=== PATIENT | male | born 1995 | race Caucasian/White ===

== ENCOUNTER 2016-07-02 04:45 | Emergency (ER) | payer MEDICAID ==
[~2016-07-02] VITALS: Ht 162.6 cm; Wt 66.0 kg
[2016-07-02 05:06] VITALS: Ht 162.6 cm; Wt 66.0 kg
[2016-07-02] MEDS ORDERED: morphine 4 MG/ML VIAL IV STA (07:15)
[2016-07-02] MEDS ORDERED: KETOROLAC 15 MG INJ IV STA (07:15)
[2016-07-02] MEDS ORDERED: ONDANSETRON 4 MG INJ IV STA (07:15)
[2016-07-02] MEDS ORDERED: SOD CHLORIDE 0.9% 1,000 ML IV STA (07:15)
[2016-07-02] MEDS ORDERED: HYDROmorphONE 1 MG/ML SYG IV STA (07:18)
[2016-07-02 07:59] LABS: ADD SCAN DIFF NO
[2016-07-02 08:12] LABS: BASOPHILS % 0.2 % (0.0-2.0); EOSINOPHILS % 0.1 % (0.0-7.0); HEMATOCRIT 42.9 % (42.0-52.0); HEMOGLOBIN 14.2 g/dl (14.0-18.0); LYMPHOCYTES # 1.1 10^3/ul (0.8-2.9); LYMPHOCYTES % 8.2 % (15.0-51.0); MEAN CORPUSCULAR HEMOGLOBIN 30.1 pg (29.0-33.0); MEAN CORPUSCULAR HGB CONC 33.1 g/dl (32.0-37.0); MEAN CORPUSCULAR VOLUME 91.1 fl (82.0-101.0); MEAN PLATELET VOLUME 9.8 fl (7.4-10.4); MONOCYTE # 0.7 10^3/ul (0.3-0.9); MONOCYTES % 5.4 % (0.0-11.0); NEUTROPHIL # 11.5 10^3/ul (1.6-7.5); NEUTROPHILS % 85.7 % (39.0-77.0); PLATELET COUNT 234 10^3/UL (140-415); RED BLOOD COUNT 4.71 10^6/ul (4.70-6.10); RED CELL DISTRIBUTION WIDTH 13.6 % (11.5-14.5); WHITE BLOOD COUNT 13.4 10^3/ul (4.8-10.8)
[2016-07-02 08:13] LABS: ADD UMIC NO; URINE BILIRUBIN (Dip) NEGATIVE (NEGATIVE); URINE BLOOD (Dip) NEGATIVE (NEGATIVE); URINE COLOR LT. YELLOW (YELLOW); URINE GLUCOSE (Dip) NEGATIVE (NEGATIVE); URINE KETONES (Dip) NEGATIVE (NEGATIVE); URINE LEUKOCYTE ESTERASE (Dip) NEGATIVE (NEGATIVE); URINE NITRITE (Dip) NEGATIVE (NEGATIVE); URINE TOTAL PROTEIN (Dip) NEGATIVE (NEGATIVE); URINE UROBILINOGEN (Dip) 0.2 E.U./dL (0.1-1.0)
[2016-07-02 08:18] LABS: POTASSIUM 3.7 mmol/L (3.5-5.1)
[2016-07-02 08:19] LABS: CREATININE 0.83 mg/dl (0.61-1.24)
[2016-07-02 08:20] LABS: ALBUMIN/GLOBULIN RATIO 1.21; BILIRUBIN,INDIRECT 0.1 mg/dl (0-1.1); BILIRUBIN,TOTAL 0.1 mg/dl (0.2-1.3); CALCIUM 8.5 mg/dl (8.4-10.2); TOTAL PROTEIN 7.3 g/dl (6.1-8.1)
--- NOTE | 2016-07-02 08:50 | RADRPT ---
PROCEDURE: CT Abdomen and pelvis without contrast. CLINICAL INDICATION: Abdominal pain TECHNIQUE: CT scan of the abdomen and pelvis with contrast was performed on a multidetector high-r esolution CT scan. . Coronal and sagittal reformatted images were obtained from the axial source i mages. Standard CT scan of the abdomen pelvis without contrast protocols were performed. The total exam CTDI equals 8.19 mGy and the total exam DLP equals 462.37 mGy-cm. One or more of the following dose reduction techniques were used: - Automated exposure control. - Adjustment of the mA and/or kV according to patient size. Use of iterative reconstruction technique. COMPARISON: None FINDINGS: The appendix is dilated with a maximal diameter of 1.0 cm with a thick wall and to elongated appendi coliths. Although there is no adjacent induration or fluid rule out early acute appendicitis. Ther e is no evidence of intra-abdominal free air fluid abscesses or lymphadenopathy. The stomach, small bowel and large bowel are unremarkable. The liver spleen pancreas adrenal glands and kidneys are normal size configuration without focal les ions. Negative for hydronephrosis bilaterally. The urinary bladder is unremarkable. The abdominal aorta is unremarkable. The lung bases are clear. The osseous structures are unremark able. IMPRESSION: 1. Dilated or thick-walled appendix with appendicoliths. Rule out early acute appendicitis. 2. No intra-abdominal free air fluid abscesses or lymphadenopathy. 3. No evidence of calcified urinary calculi or obstructive uropathy. 4. No evidence of bowel obstruction. Addendum: Navarro Wheatley was telephoned this results on 07/02/2016 0835 hours. RPTAT:AAJJ Physician Kaveh Date Time Electronically viewed and signed by Physician Kaveh on 07/02/2016 08:50 BM/
--- NOTE | 2016-07-02 08:53 | ERA ---
ER Documentation Chief Complaint Date/Time DATE: 07/02/16 TIME: 08:47 Chief Complaint AP since 12 MN HPI This is a 20-year-old male presenting to the emergency room complaining of 10 out of 10 severe abdominal pain since midnight. Patient locates the pain in the periumbilical region. He denies any fever, nausea, vomiting, diarrhea. Last meal was 4 PM yesterday. He admits to having decreased appetite. ROS All systems reviewed and are negative except as per history of present illness. Medications Home Meds Active Scripts Hydrocodone/Acetaminophen ([place] 5-325 Tablet) 1 Each Tablet, 1 TAB PO Q6H Y for PAIN, #20 TAB Prov:KAELYN ORR PA-C 07/02/16 Metronidazole* (Flagyl*) 500 Mg Tablet, 500 MG PO TID for 7 Days, TAB Prov:KAELYN ORR PA-C 07/02/16 Ciprofloxacin Hcl* (Ciprofloxacin Hcl*) 500 Mg Tablet, 500 MG PO BID for 7 Days , TAB Prov:KAELYN ORR PA-C 07/02/16 Allergies Allergies: Coded Allergies: No Known Allergy (Unverified , 07/02/16) PMhx/Soc Medical and Surgical Hx: pt denies Medical Hx, pt denies Surgical Hx Hx Alcohol Use: No Hx Substance Use: No Hx Tobacco Use: No Physical Exam Vitals Vital Signs Date Time Temp Pulse Resp B/P Pulse Ox O2 Delivery O2 Flow Rate FiO2 07/02/16 09:01 98.6 67 18 118/61 Room Air 07/02/16 05:06 98.8 62 18 114/56 100 Physical Exam GENERAL: well-developed/well-nourished, in no apparent distress, non-toxic appearing HENT: NC/AT, moist mucous membranes EYES: Conjunctiva normal NECK: Supple, no lymphadenopathy PULM: CTA bilaterally, no rales, rhonchi, or wheezing heard CV: Normal S1S2, RRR, good capillary refill GI: Soft, non-distended, tender to palpation in periumbilical and right lower quadrant Normal bowel sounds, no masses or organomegaly felt on exam No gross peritonitis, no bruits Negative Rovsing, negative Ho, + McBurney's point, Negative CVAT BACK: No masses EXT: No clubbing, cyanosis, or edema NEURO: Alert and Orientated SKIN: Intact, normal turgor PSYCH: Normal mood and mentation Result Diagram: 07/02/16 0748 07/02/16 0748 Results 24 hrs Laboratory Tests Test 07/02/16 07:48 Alanine Aminotransferase (ALT/SGPT) 34IU/L Albumin 4.0g/dl Albumin/Globulin Ratio 1.21 Alkaline Phosphatase 99IU/L Anion Gap 15 Aspartate Amino Transf (AST/SGOT) 35IU/L Basophils # 0.010^3/ul Basophils % 0.2% Blood Urea Nitrogen 11mg/dl Calcium Level 8.5mg/dl Carbon Dioxide Level 27mmol/L Chloride Level 101mmol/L Creatinine 0.83mg/dl Direct Bilirubin 0.00mg/dl Eosinophils # 0.010^3/ul Eosinophils % 0.1% Globulin 3.30g/dl Glucose Level 128mg/dl Hematocrit 42.9% Hemoglobin 14.2g/dl Indirect Bilirubin 0.1mg/dl Lipase 52U/L Lymphocytes # 1.110^3/ul Lymphocytes % 8.2% Mean Corpuscular Hemoglobin 30.1pg Mean Corpuscular Hemoglobin Concent 33.1g/dl Mean Corpuscular Volume 91.1fl Mean Platelet Volume 9.8fl Monocytes # 0.710^3/ul Monocytes % 5.4% Neutrophils # 11.510^3/ul Neutrophils % 85.7% Nucleated Red Blood Cells # 0.010^3/ul Nucleated Red Blood Cells % 0.0/100WBC Platelet Count 25534^3/UL Potassium Level 3.7mmol/L Red Blood Count 4.7110^6/ul Red Cell Distribution Width 13.6% Sodium Level 139mmol/L Total Bilirubin 0.1mg/dl Total Protein 7.3g/dl Urine Bilirubin NEGATIVE Urine Clarity CLEAR Urine Color LT. YELLOW Urine Glucose NEGATIVE% Urine Hemoglobin NEGATIVE Urine Ketones NEGATIVE Urine Leukocyte Esterase NEGATIVE Urine Nitrite NEGATIVE Urine Specific [place] >=1.030 Urine Total Protein NEGATIVE Urine Urobilinogen 0.2 E.U./dL Urine pH 5.5 White Blood Count 13.410^3/ul Current Medications Medications (Trade) Dose Ordered Sig/Rickie Route PRN Reason Start Time Stop Time Status Last Admin Dose Admin Sodium Chloride (NS) 1,000 ml @ 1,000 mls/hr Q1H STAT IV 317/17 07:15 07/02/16 08:14 DC 07/02/16 07:53 Morphine Sulfate (morphine) 4 mg ONCE STAT IV 07/02/16 07:15 07/02/16 07:19 DC Ondansetron HCl (Zofran Inj) 4 mg ONCE STAT IV 07/02/16 07:15 07/02/16 07:17 DC 07/02/16 07:53 Ketorolac Tromethamine (Toradol) 15 mg ONCE STAT IV 07/02/16 07:15 07/02/16 07:17 DC 07/02/16 07:53 Hydromorphone HCl (Dilaudid) 0.5 mg ONCE STAT IV 07/02/16 07:18 07/02/16 07:19 DC 07/02/16 07:53 Procedures/MDM 20-year-old male presents to the emergency department complaining of abdominal pain since midnight yesterday. This is most consistent with acute early appendicitis. Lab work was drawn. CBC did not show any evidence of leukocytosis or anemia. CMP did not show any evidence of renal, liver, or electrolyte abnormalities. Lipase was normal. UA did not show any evidence of hemoglobin or urinary tract infection. Patient was given 1 liter of normal saline fluids and Dilaudid for pain. CT abd and pelvis without contrast was done , radiologist stated: 1. Dilated or thick-walled appendix with appendicoliths. Rule out early acute appendicitis. 2. No intra-abdominal free air fluid abscesses or lymphadenopathy. 3. No evidence of calcified urinary calculi or obstructive uropathy. 4. No evidence of bowel obstruction. I have discussed diagnostic testing with patient and discussed he will need surgery however he refused. I have given patient a lengthy discussion on the risks including perforation, peritonitis, sepsis and however patient still refused and wants to sign out AMA. I have tried to convince him and his brother that is with him however they still refused. I discussed this case with my SP physician who has also tried to convince him. Patient signed against medical advice. Prescription Flagyl and Citro was given. My SP physician agreed with plan above Departure Diagnosis: Primary Impression: Appendicitis Condition: Serious KAELYN ORR PA-C Jul 02, 2016 08:53
[2016-07-02 09:01] VITALS: BP 118/61; PULSE 67; RESP 18; TEMP 98.6
[2016-07-02] MEDS ORDERED: METR500T PO (09:06)
[2016-07-02] MEDS ORDERED: CIPR500T4 PO (09:06)
[2016-07-02] MEDS ORDERED: HYDR-906 PO (09:08)
--- NOTE | 2016-07-02 09:08 | QN ---
Documentation Comment My independent concise history is right lower quadrant abdominal pain. My pertinent physical exam findings are right lower quadrant abdominal pain. The plan is I wanted to admit the patient for acute appendicitis. I explained to him in detail the risks of leaving AGAINST MEDICAL ADVICE including rupture of the appendix as well as sepsis and the patient understands. He still wants to leave AGAINST MEDICAL ADVICE. The patient will be given a prescription for Cipro and Flagyl and he was told to follow-up as close as he can with the primary doctor. He can return at any time if he is getting worse for admission. Please note that we did stress to the patient that admission would be the best course of action as he does need surgery but the patient refused. MELIZA DESIR MD Jul 02, 2016 09:08
== END 2016-07-02 09:17 | disposition left against medical advice (07) ==
LOC: FTE 04:45
DX: K37 Unspecified appendicitis (principal)
CPT/HCPCS: 36415; 74176; 80053; 81003; 83690; 85025; 96361; 96374; 96375; J1170; J1885; J2405; J7030; Z7502

== ENCOUNTER 2016-07-06 11:27 | Inpatient (IN) | payer MEDICAID ==
[~2016-07-06] VITALS: Ht 162.6 cm; Wt 65.0 kg
[~2016-07-06 11:27] MED LIST: CIPR500T4 PO; HYDR-906 PO; METR500T PO
[2016-07-06] MEDS ORDERED: SOD CHLORIDE 0.9% 1,000 ML IV STA (18:14)
[2016-07-06] MEDS ORDERED: IOHEXOL 300MG/ML 150 ML BTL ONE (18:27)
[2016-07-06] MEDS ORDERED: SOD CHLORIDE 0.9% 100 ML ONE (18:27)
--- NOTE | 2016-07-06 18:30 | ERA ---
ER Documentation Chief Complaint Date/Time DATE: 07/06/16 TIME: 18:23 Chief Complaint was seen in ER for apendicitis; left ER, he was scared of surgery HPI 20-year-old male with no significant previous medical history was seen in the ED 07/02/2016 for right lower quadrant pain; CT was consistent with acute early appendicitis but patient refused admission and signed out AGAINST MEDICAL ADVICE because he was afraid of having surgery. He was given prescriptions for [place], Cipro and Flagyl which he did not fill. Right lower quadrant pain has been decreasing significantly and is mild, intermittent, sharp and nonradiating. He now wants surgery. Denies nausea, vomiting, diarrhea or constipation. No dysuria, polyuria, hematuria or flank pain. Denies chest pain or palpitations. No shortness of breath or cough. No fevers or chills. ROS All systems reviewed and are negative except as per history of present illness. Medications Home Meds Discontinued Scripts Hydrocodone/Acetaminophen ([place] 5-325 Tablet) 1 Each Tablet, 1 TAB PO Q6H Y for PAIN, #20 TAB Prov:KAELYN ORR PA-C 07/02/16 Metronidazole* (Flagyl*) 500 Mg Tablet, 500 MG PO TID for 7 Days, TAB Prov:KAELYN ORR PA-C 07/02/16 Ciprofloxacin Hcl* (Ciprofloxacin Hcl*) 500 Mg Tablet, 500 MG PO BID for 7 Days , TAB Prov:KAELYN ORR PA-C 07/02/16 Allergies Allergies: Coded Allergies: No Known Allergy (Unverified , 07/06/16) PMhx/Soc Reviewed in chart. As per HPI. Medical and Surgical Hx: pt denies Medical Hx, pt denies Surgical Hx History of Surgery: No Anesthesia Reaction: No Hx Neurological Disorder: No Hx Respiratory Disorders: No Hx Cardiac Disorders: No Hx Psychiatric Problems: No Hx Miscellaneous Medical Probl: No Hx Alcohol Use: No Hx Substance Use: No Hx Tobacco Use: No Smoking Status: Never smoker FmHx No stroke or cancer Physical Exam Vitals Vital Signs Date Time Temp Pulse Resp B/P Pulse Ox O2 Delivery O2 Flow Rate FiO2 07/06/16 11:40 98.0 65 19 125/57 98 Physical Exam Const: Alert, anxious but in no acute distress. Head: Atraumatic Eyes: Normal Conjunctiva ENT: Normal External Ears, Nose and Mouth. Neck: Full range of motion. Nontender. Resp: Clear to auscultation bilaterally Cardio: Regular rate and rhythm, no murmurs Abd: Soft, mild right lower quadrant tenderness. No rebound or guarding. Bowel sounds present. Skin: No petechiae or rashes Back: No midline or flank tenderness Ext: No cyanosis, or edema Neur: Awake and alert Psych: Normal Mood and Affect Result Diagram: 07/06/16181907/06/161819 Results 24 hrs Laboratory Tests Test 07/06/16 18:20 Alanine Aminotransferase (ALT/SGPT) 34IU/L Albumin 4.2g/dl Albumin/Globulin Ratio 1.16 Alkaline Phosphatase 90IU/L Anion Gap 21 Aspartate Amino Transf (AST/SGOT) 34IU/L Basophils # 0.010^3/ul Basophils % 0.3% Blood Urea Nitrogen 14mg/dl Calcium Level 9.3mg/dl Carbon Dioxide Level 27mmol/L Chloride Level 103mmol/L Creatinine 0.80mg/dl Direct Bilirubin 0.00mg/dl Eosinophils # 0.010^3/ul Eosinophils % 0.5% Globulin 3.60g/dl Glucose Level 88mg/dl Hematocrit 45.5% Hemoglobin 15.3g/dl Indirect Bilirubin 0.2mg/dl Lipase 68U/L Lymphocytes # 1.510^3/ul Lymphocytes % 25.7% Mean Corpuscular Hemoglobin 30.4pg Mean Corpuscular Hemoglobin Concent 33.6g/dl Mean Corpuscular Volume 90.5fl Mean Platelet Volume 9.6fl Monocytes # 0.410^3/ul Monocytes % 6.2% Neutrophils # 3.910^3/ul Neutrophils % 67.1% Nucleated Red Blood Cells # 0.010^3/ul Nucleated Red Blood Cells % 0.0/100WBC Platelet Count 54276^3/UL Potassium Level 3.8mmol/L Red Blood Count 5.0310^6/ul Red Cell Distribution Width 13.2% Sodium Level 147mmol/L Total Bilirubin 0.2mg/dl Total Protein 7.8g/dl White Blood Count 5.810^3/ul Current Medications Medications (Trade) Dose Ordered Sig/Rickie Route PRN Reason Start Time Stop Time Status Last Admin Dose Admin Sodium Chloride (NS) 1,000 ml @ 1,000 mls/hr Q1H STAT IV 07/06/16 18:14 07/06/16 19:13 DC 07/06/16 18:55 IV Flush 10 ml 10 ml STK-MED ONCE .ROUTE 07/06/16 18:27 07/06/16 18:28 DC 07/06/16 18:47 Sodium Chloride (NS) 100 ml @ ud STK-MED ONCE .ROUTE 07/06/16 18:27 07/06/16 18:28 DC 07/06/16 18:47 Iohexol 150 ml 150 ml STK-MED ONCE .ROUTE 07/06/16 18:27 07/06/16 18:28 DC 07/06/16 18:48 Piperacillin Sod/ Tazobactam Sod (Zosyn 3.375gm/ 100 ml (Pmx)) 100 ml @ 200 mls/hr ONCE ONCE IVPB 07/06/16 19:30 07/06/16 19:59 DC 07/06/16 19:25 IMAGING: PROCEDURE: CT abdomen and pelvis with IV contrast. CLINICAL INDICATION: Abdomen pain. TECHNIQUE: CT scan of the abdomen and pelvis was performed on a [address] scanner. The patient is scanned following the uncomplicated IV administration of 100 cc Omnipaque-300. Coronal and sagittal reformatted images were obtained from the axial source images. Images were reviewed on a high-resolution PACS workstation. Total radiation dose: Total CTDIvol: 7.3 mGy. Total DLP: 369 mGy-cm. One or more of the following dose reduction techniques were used: automated exposure control, adjustment of the mA and/or kV according to patient size, or use of iterative reconstruction technique COMPARISON: CT abdomen pelvis, 07/02/2016. FINDINGS: CT abdomen: The lung bases are clear. The heart is not enlarged without pericardial thickening or effusion.. The liver is normal in size and density without focal mass or intrahepatic biliary dilatation. The spleen is normal in size and homogeneous in density. The stomach is partially collapsed but is grossly unremarkable. The pancreas as visualized is normal. The gallbladder is normal and there is no evidence of biliary dilatation. The adrenal glands are symmetrical and normal. The kidneys are symmetrically normal bilaterally. No renal calculus or obstructive uropathy or mass lesion is seen.. The aorta is normal in caliber. There is no retroperitoneal lymphadenopathy. The tracy hepatis region is clear. The bowel and mesentery, as visualized, are equally unremarkable. CT pelvis: There is acute early appendicitis with minimal periappendiceal stranding in the right lower quadrant. The small bowel loops situated within the pelvis are unremarkable. The pelvic organs are normal. The pelvic sidewalls and inguinal regions are clear. No mass, lymphadenopathy or free fluid is seen. No acute inflammation seen. The urinary bladder is normal. The surrounding osseous structures are unremarkable. No osteolytic or osteoblastic lesion is detected. IMPRESSION: 1. Acute early appendicitis with minimal periappendiceal stranding in the right lower quadrant. No abnormal fluid collection in the pelvis. 2. Critical finding was given to the ER physician, Dr. Aiken, 06:58 p.m., . RPTAT: GG .Ranjan Rodriguez MD, MD Date Time Electronically viewed and signed by .Ranjan Rodriguez MD, MD on 07/06/2016 19:01 .Y/ Procedures/MDM DOCUMENTS REVIEWED: ED nurse, prior ED. MEDICAL DECISION MAKIN-year-old male with no significant previous medical history was seen in the ED 07/02/2016 for right lower quadrant pain; CT was consistent with acute early appendicitis but patient refused admission and signed out AGAINST MEDICAL ADVICE because he was afraid of having surgery. Now returns and consents to surgery. Although pain has decreased repeat CT confirms acute appendicitis. Zosyn given. Patient be admitted to [facility] for surgical consultation and management. Counseled patient regarding diagnosis, diagnostic results and plan for admission. CALLS/CONSULTS: Time 19:20, Dr. Wells. IV antibiotics and will consult. CALLS/CONSULTS: Time 19:20, Dr. Flores. PATIENT CARE TRANSITIONED: Time: 20:05, Dr. Flores. Departure Diagnosis: Primary Impression: Acute appendicitis Qualified Code: K35.80 - Acute appendicitis, unspecified acute appendicitis type Additional Impression: Right lower quadrant abdominal pain Condition: Serious COLLIN AIKEN MD Jul 06, 2016 18:30
[2016-07-06 18:33] LABS: ADD SCAN DIFF NO
[2016-07-06 18:37] LABS: BASOPHILS % 0.3 % (0.0-2.0); EOSINOPHILS % 0.5 % (0.0-7.0); HEMATOCRIT 45.5 % (42.0-52.0); HEMOGLOBIN 15.3 g/dl (14.0-18.0); LYMPHOCYTES # 1.5 10^3/ul (0.8-2.9); LYMPHOCYTES % 25.7 % (15.0-51.0); MEAN CORPUSCULAR HEMOGLOBIN 30.4 pg (29.0-33.0); MEAN CORPUSCULAR HGB CONC 33.6 g/dl (32.0-37.0); MEAN CORPUSCULAR VOLUME 90.5 fl (82.0-101.0); MEAN PLATELET VOLUME 9.6 fl (7.4-10.4); MONOCYTE # 0.4 10^3/ul (0.3-0.9); MONOCYTES % 6.2 % (0.0-11.0); NEUTROPHIL # 3.9 10^3/ul (1.6-7.5); NEUTROPHILS % 67.1 % (39.0-77.0); PLATELET COUNT 317 10^3/UL (140-415); RED BLOOD COUNT 5.03 10^6/ul (4.70-6.10); RED CELL DISTRIBUTION WIDTH 13.2 % (11.5-14.5); WHITE BLOOD COUNT 5.8 10^3/ul (4.8-10.8)
--- NOTE | 2016-07-06 19:01 | RADRPT ---
PROCEDURE: CT abdomen and pelvis with IV contrast. CLINICAL INDICATION: Abdomen pain. TECHNIQUE: CT scan of the abdomen and pelvis was performed on a [address] scanner. The patient is scanned following the uncomplicated IV administration of 100 cc Omnipaque-300. Coronal and sagit jacob reformatted images were obtained from the axial source images. Images were reviewed on a [employer] PACS workstation. Total radiation dose: Total CTDIvol: 7.3 mGy. Total DLP: 369 mGy-cm. One or more of the following dose reduction techniques were used: automated exposure control, adjustment of the mA and/or kV acc ording to patient size, or use of iterative reconstruction technique COMPARISON: CT abdomen pelvis, 07/02/2016. FINDINGS: CT abdomen: The lung bases are clear. The heart is not enlarged without pericardial thickening or effusion.. The liver is normal in size and density without focal mass or intrahepatic biliary dilatation. The spleen is normal in size and homogeneous in density. The stomach is partially collapsed but is yesica sly unremarkable. The pancreas as visualized is normal. The gallbladder is normal and there is no evidence of biliary dilatation. The adrenal glands are symmetrical and normal. The kidneys are symmetrically normal bilaterally. N o renal calculus or obstructive uropathy or mass lesion is seen.. The aorta is normal in caliber. There is no retroperitoneal lymphadenopathy. The tracy hepatis reg ion is clear. The bowel and mesentery, as visualized, are equally unremarkable. CT pelvis: There is acute early appendicitis with minimal periappendiceal stranding in the right lower quadrant . The small bowel loops situated within the pelvis are unremarkable. The pelvic organs are normal. The pelvic sidewalls and inguinal regions are clear. No mass, lymphadenopathy or free fluid is se en. No acute inflammation seen. The urinary bladder is normal. The surrounding osseous structures are unremarkable. No osteolytic or osteoblastic lesion is detect ed. IMPRESSION: 1. Acute early appendicitis with minimal periappendiceal stranding in the right lower quadrant. No abnormal fluid collection in the pelvis. 2. Critical finding was given to the ER physician, Dr. Patterson, 06:58 p.m., 07/06/2016. RPTAT: GG .Ranjan Rodriguez MD, MD Date Time Electronically viewed and signed by .Ranjan Rodriguez MD, MD on 07/06/2016 19:01 .Y/
[2016-07-06 19:07] LABS: ALBUMIN 4.2 g/dl (3.3-4.9)
[2016-07-06 19:08] LABS: POTASSIUM 3.8 mmol/L (3.5-5.1)
[2016-07-06 19:10] LABS: BILIRUBIN,INDIRECT 0.2 mg/dl (0-1.1); BILIRUBIN,TOTAL 0.2 mg/dl (0.2-1.3); CREATININE 0.8 mg/dl (0.61-1.24)
[2016-07-06 19:11] LABS: ALBUMIN/GLOBULIN RATIO 1.16; CALCIUM 9.3 mg/dl (8.4-10.2); TOTAL PROTEIN 7.8 g/dl (6.1-8.1)
[2016-07-06] MEDS ORDERED: PIPER-TAZO 3.375 GM IV (PMX) 100 ML IVPB ONE (19:30)
[2016-07-06 20:15] VITALS: TEMP 98
--- NOTE | 2016-07-06 20:16 | HP ---
Date/Time of Note Date/Time of Note DATE: 07/06/16 TIME: 20:15 Assessment/Plan VTE Prophylaxis VTE Prophylaxis Intervention: ambulation Assessment/Plan Assessment/Plan 1) Acute Appendicitis - Admit to Med/Surg - NPO - IV ABX - Pain Control - CONSULT: Surgery - Dr. Wells already notified by ER Physician. HPI/ROS Admit Date/Time Admit Date/Time 07/06/20162002 Hx of Present Illness Patient was seen here in the ER on 07/02/16 and was diagnosed with Acute Appendicitis. He was afraid of surgery and left AMA, and he did not fill his antibiotics. He is back today with the same pain, worse, nausea and vomiting, denies fever and chills. Last at at 0900 on 07/06/16. Per Er Physician, Dr. Wells already consulted. Patient has no chronic medical problems and has no other complaints or concerns. He is accompanied by his brother. ROS General: Admits: Poor Appetite Denies: Fever, Chills, Generalized Body Aches Eyes: Admits: Denies: Blurry Vision, Double Vision HENT: Admits: Denies: Ear Pain/Pressure, Runny/Stuffy Nose, Sore Throat Cardiovascular: Admits: Denies: Chest Pain, Palpitations, Leg Swelling Pulmonary: Admits: Denies: Cough, Wheeze, Shortness of Breath Gastrointestinal: Admits: Abdominal Pain, Nausea, Vomiting, Denies: Diarrhea, Blood in Stool, Black-Colored Stool Urogenital: Admits: Denies: Burning with Urination, Urinary Frequency Musculoskeletal: Admits: Denies: Joint Pain, Joint Swelling, Muscle Pain Neurological: Admits: Denies: Headache, Dizziness, Numbness, Tingling, Shooting Pains Integumentary: Admits: Denies: Rash, Itch, Yellow Skin PMH/Family/Social Past Medical History Medical History: no pertinent history Past Surgical History Past Surgical Hx: no surgical history Social History Alcohol Use: none Smoking Status: Never smoker Drug Use: none Exam/Review of Systems Vital Signs Vitals Vital Signs Date Time Temp Pulse Resp B/P Pulse Ox O2 Delivery O2 Flow Rate FiO2 07/06/16 11:40 98.0 65 19 125/57 98 Exam Exam General: Slender Pakistani-speaking male, alert and in no acute distress Eyes: Sclera White, EOMI HENT: Normocephalic/Atraumatic, External Ears/Nose Normal, Moist Mucus Membranes Neck: Supple, Trachea Midline Cardiovascular: Normal Rate, Normal Rhythm, Normal S1 and S2, No Murmur, No Extra Sounds Pulmonary: Clear to Auscultation Bilaterally, Normal Respiratory Effort, No Rales, Rhonchi or Wheezes Gastrointestinal: Deferred as he is tender, already had exam by ER Physician, and has already diagnosed Appendicitis by previous visit confirmed by CT Scan Urogenital: Deferred Musculoskeletal: Normal Muscle Bulk and Tone Neurological: CN II - XII Grossly Intact, Non-Focal, Speech Normal Integumentary: Normal Moisture and Temperature, Good Turgor, No Jaundice, No Rash Lymphatic: No Cervical Lymphadenopathy Psychiatric: Appropriate Mood and Affect, Good Eye Contact Labs Result Diagram: 07/06/160 07/06/161819 Medications Medications No medications taken at home. Procedures Procedures Laboratory Tests Test 07/06/16 18:20 Alanine Aminotransferase (ALT/SGPT) 34IU/L Albumin 4.2g/dl Albumin/Globulin Ratio 1.16 Alkaline Phosphatase 90IU/L Anion Gap 21 Aspartate Amino Transf (AST/SGOT) 34IU/L Basophils # 0.010^3/ul Basophils % 0.3% Blood Urea Nitrogen 14mg/dl Calcium Level 9.3mg/dl Carbon Dioxide Level 27mmol/L Chloride Level 103mmol/L Creatinine 0.80mg/dl Direct Bilirubin 0.00mg/dl Eosinophils # 0.010^3/ul Eosinophils % 0.5% Globulin 3.60g/dl Glucose Level 88mg/dl Hematocrit 45.5% Hemoglobin 15.3g/dl Indirect Bilirubin 0.2mg/dl Lipase 68U/L Lymphocytes # 1.510^3/ul Lymphocytes % 25.7% Mean Corpuscular Hemoglobin 30.4pg Mean Corpuscular Hemoglobin Concent 33.6g/dl Mean Corpuscular Volume 90.5fl Mean Platelet Volume 9.6fl Monocytes # 0.410^3/ul Monocytes % 6.2% Neutrophils # 3.910^3/ul Neutrophils % 67.1% Nucleated Red Blood Cells # 0.010^3/ul Nucleated Red Blood Cells % 0.0/100WBC Platelet Count 86339^3/UL Potassium Level 3.8mmol/L Red Blood Count 5.0310^6/ul Red Cell Distribution Width 13.2% Sodium Level 147mmol/L Total Bilirubin 0.2mg/dl Total Protein 7.8g/dl White Blood Count 5.810^3/ul RADIOLOGY: PROCEDURE: CT abdomen and pelvis with IV contrast. CLINICAL INDICATION: Abdomen pain. COMPARISON: CT abdomen pelvis, 07/02/2016. FINDINGS: CT abdomen: The lung bases are clear. The heart is not enlarged without pericardial thickening or effusion.. The liver is normal in size and density without focal mass or intrahepatic biliary dilatation. The spleen is normal in size and homogeneous in density. The stomach is partially collapsed but is grossly unremarkable. The pancreas as visualized is normal. The gallbladder is normal and there is no evidence of biliary dilatation. The adrenal glands are symmetrical and normal. The kidneys are symmetrically normal bilaterally. No renal calculus or obstructive uropathy or mass lesion is seen.. The aorta is normal in caliber. There is no retroperitoneal lymphadenopathy. The tracy hepatis region is clear. The bowel and mesentery, as visualized, are equally unremarkable. CT pelvis: There is acute early appendicitis with minimal periappendiceal stranding in the right lower quadrant. The small bowel loops situated within the pelvis are unremarkable. The pelvic organs are normal. The pelvic sidewalls and inguinal regions are clear. No mass, lymphadenopathy or free fluid is seen. No acute inflammation seen. The urinary bladder is normal. The surrounding osseous structures are unremarkable. No osteolytic or osteoblastic lesion is detected. IMPRESSION: 1. Acute early appendicitis with minimal periappendiceal stranding in the right lower quadrant. No abnormal fluid collection in the pelvis. 2. Critical finding was given to the ER physician, Dr. Patterson, 06:58 p.m., . LISA LOPEZ DO Jul 06, 2016 20:16
[2016-07-06] MEDS ORDERED: ONDANSETRON 4 MG INJ IV PRN ×2 (20:30→21:00)
[2016-07-06] MEDS ORDERED: ACETAMINOPHEN 325 MG TAB PO PRN (20:30)
[2016-07-06] MEDS ORDERED: ACETAMINOPHEN 650 MG SUPP PR PRN (21:00)
[2016-07-06] MEDS ORDERED: NACL 0.9% 3 ML SYG IV SCH (21:00)
[2016-07-06] MEDS ORDERED: METOCLOPRAMIDE 10 MG INJ IV PRN (21:00)
[2016-07-06] MEDS ORDERED: morphine 2 MG INJ IV PRN (21:00)
[2016-07-06] MEDS: FAMOTIDINE 20 MG INJ IV SCH (21:23)
[2016-07-06] MEDS: SOD CHLORIDE 0.9% 1,000 ML IV SCH (21:24)
[2016-07-06 22:46] VITALS: BP 128/61; PULSE 61; RESP 18; Ht 162.6 cm; Wt 65.0 kg
[2016-07-07] MEDS: SOD CHLORIDE 0.9% 1,000 ML IV SCH ×3 (00:19→20:53)
[2016-07-07] MEDS: PIPER-TAZO 3.375 GM IV (PMX) 100 ML IVPB SCH ×5 (00:19→23:12)
[2016-07-07 05:44] LABS: ADD SCAN DIFF NO
[2016-07-07 05:52] LABS: BASOPHILS % 0.4 % (0.0-2.0); EOSINOPHILS # 0.1 10^3/ul (0.0-0.5); HEMATOCRIT 41.6 % (42.0-52.0); HEMOGLOBIN 13.6 g/dl (14.0-18.0); LYMPHOCYTES # 1.6 10^3/ul (0.8-2.9); LYMPHOCYTES % 33.2 % (15.0-51.0); MEAN CORPUSCULAR HEMOGLOBIN 29.8 pg (29.0-33.0); MEAN CORPUSCULAR HGB CONC 32.7 g/dl (32.0-37.0); MEAN CORPUSCULAR VOLUME 91.2 fl (82.0-101.0); MEAN PLATELET VOLUME 9.6 fl (7.4-10.4); MONOCYTE # 0.4 10^3/ul (0.3-0.9); MONOCYTES % 8.1 % (0.0-11.0); NEUTROPHIL # 2.8 10^3/ul (1.6-7.5); NEUTROPHILS % 57.1 % (39.0-77.0); PLATELET COUNT 276 10^3/UL (140-415); RED BLOOD COUNT 4.56 10^6/ul (4.70-6.10); RED CELL DISTRIBUTION WIDTH 13.5 % (11.5-14.5); WHITE BLOOD COUNT 4.9 10^3/ul (4.8-10.8)
[2016-07-07 06:15] LABS: POTASSIUM 3.6 mmol/L (3.5-5.1)
[2016-07-07 06:17] LABS: CREATININE 0.9 mg/dl (0.61-1.24)
[2016-07-07 06:18] LABS: CALCIUM 8.3 mg/dl (8.4-10.2)
[2016-07-07 07:46] VITALS: BP 111/55; RESP 18
[2016-07-07] MEDS: FAMOTIDINE 20 MG INJ IV SCH ×2 (08:27→20:00)
--- NOTE | 2016-07-07 10:50 | PN ---
DATE: 07/07/2016 TIME OF EVALUATION: 10:15 a.m. SUBJECTIVE DATA: Abdominal pain well controlled. The patient remains afebrile. OBJECTIVE DATA: VITAL SIGNS: Temperature 98.3, pulse rate 51, respiratory rate 18, blood pressure 111/54, oxygen saturation 94% on room air. GENERAL: This is a well-built, well-nourished male lying in bed in no apparent distress. HEENT: Head normocephalic and atraumatic. Eyes: Anicteric sclerae. Conjunctivae clear. ENT: Nasal septum is midline. Oral mucosa is dry. NECK: Supple. No JVD noticed. RESPIRATORY: Bilaterally clear to auscultation. No adventitious breath sounds. No use of accessory muscles of respiration. CARDIAC: Regular rate and rhythm. No murmurs heard. ABDOMEN: Soft, nontender and nondistended. Bowel sounds positive in all 4 quadrants. GENITOURINARY: Deferred. EXTREMITIES: No cyanosis, no clubbing, no edema. Peripheral pulses palpable. NEUROLOGIC: The patient is awake, alert and oriented. Cranial nerves are grossly intact. LABORATORY AND DIAGNOSTIC DATA: WBC 4.9, hemoglobin 13.6, hematocrit 41.6, platelet count 276. Sodium 144, potassium 3.6, chloride 106, carbon dioxide 26 , anion gap 16, BUN 12, creatinine 0.97, glucose 76, calcium 8.3. ASSESSMENT AND PLAN: 1. Acute abdominal pain. CT evidence of acute appendicitis. The patient will be provided with adequate pain control. The patient will be kept n.p.o. The patient will be provided with adequate IV antibiotics. A general surgery consult already has been called. 2. Fluid, electrolytes and nutrition. Continue n.p.o. Continue IV fluids. 3. Deep venous thrombosis prophylaxis with bilateral sequential compression devices. 4. Gastrointestinal prophylaxis. IV histamine receptor blockers. PLAN: Continue pain control. Continue IV antibiotics. Keep the patient n.p.o. Await general surgery evaluation. Case discussed with Dr. Apodaca. JENNY APODACA MD, AM/MILLIE Conf#: [id number] DID#: [id number] MTDD
[2016-07-07 11:18] VITALS: BP 117/56; PULSE 71; RESP 16
--- NOTE | 2016-07-07 18:42 | CONS ---
[facility] INITIAL INPATIENT CONSULTATION NOTE DATE OF CONSULTATION: 07/07/2016 PLACE OF SERVICE: [facility], 4th floor. IMPRESSION AND PLAN: A very pleasant and otherwise healthy young gentleman admitted with possible acute appendicitis as the differential but currently does not have any indication for acute surgical intervention. He could have had resolution of the occlusion of his appendix and currently does not meet criteria for acute intervention. I suggested that we give the patient a regular diet and if the patient does not have any pain complaints, to consider discharging home tomorrow with followup with his regular doctor. I explained all of this to the patient in detail and answered all his questions to the best of my ability. I believe that the patient understood and agreed with the plans. With above assessment I have recommended the followin. Regular diet. 2. Evaluation overnight with lab checks in the morning. 3. Consideration for discharge home tomorrow if stable. Thank you again for allowing us to participate in the care of this very pleasant gentleman and I am certain his wonderful family. If there are any questions, please feel free to call me at [phone]. TOTAL VISIT TIME: 45 minutes of which more than half was spent in [id number] discussion with the patient as well as coordination of care between multiple physicians and providers. UPDATED CLINICAL SUMMARY: The patient is a very pleasant 20-year-old young gentleman without significant known other comorbidities who was admitted through the emergency department at [facility] on 07/06/2016 with concerns for acute appendicitis. His pain started on 07/02/2016 and he was evaluated and recommended to have an appendectomy but he left against medical advice. COMORBIDITIES: No known comorbidities. DATE OF ADMISSION: 07/06/2016 HISTORY OF PRESENT ILLNESS: The patient is a very pleasant 20-year-old young gentleman who is otherwise healthy who was seen at [facility] Emergency Department on 07/02/2016 with right lower quadrant abdominal pain associated with a white blood cell count of 13.[address] scan of abdomen and pelvis that demonstrated dilated or thick walled appendix with appendicolith concerning for possible appendicitis. At that time, he was recommended to undergo appendectomy, but he left against medical advice due to anxiety. The patient had remained at home and re-presented and was admitted to the hospital on 07/06/2016 with recurrent abdominal pain which interestingly was in the left lower quadrant on admission. His white blood cell count was 4.[address] scan on 07/06/2016 showed acute early appendicitis with minimal periappendiceal stranding in the right lower quadrant. My impression of the images were that of mild inflammation of the appendix. I was kindly asked to consult. The patient did not have any pain complaints. He did not have any current nausea or any other major issues at the time of my visit. ALLERGIES: NO KNOWN DRUG ALLERGIES. MEDICATIONS: None at home. SOCIAL HISTORY: The patient does not report any smoking, drinking, or intravenous drug use. FAMILY HISTORY: No major reported medical, surgical or oncologic problems in the family. REVIEW OF SYSTEMS: Other than the above-mentioned, there are no other pertinent positives or pertinent negatives in a complete 14-point review of systems. PHYSICAL EXAMINATION: GENERAL: The patient appears to be a very pleasant gentleman of descent, lying in bed comfortably and in no acute distress. BMI is 24.6. He is afebrile. VITAL SIGNS: Stable. HEENT: Normocephalic and atraumatic. Extraocular muscles and hearing are grossly intact bilaterally and symmetrically. Sclerae are nonicteric. Oral cavity is clear; oral mucosa appeared to be pink and moist. Dentition: fair. NECK: Supple. There is no lymphadenopathy or JVD. There is no submental, submandibular or supraclavicular lymphadenopathy. CHEST: Rises symmetrically with each breath; patient is breathing comfortably. There are no audible wheezes, rales or rhonchi on the gross exam. HEART: Pulse is regular and palpable on the left wrist. Capillary refill was normal. Carotid pulses are palpable bilaterally and symmetrically in the neck. EXTREMITIES: Lower extremities contain no pitting edema around the ankles bilaterally and symmetrically. ABDOMEN: Abdomen is soft, nontender and nondistended. There are no peritoneal signs or guarding. No evidence of ascites, organomegaly, caput medusae, engorged subcutaneous veins, or other abnormalities. SKIN: Appears to be pink and feels warm to touch. NEUROLOGIC: Awake, alert, and follows commands appropriately. LABORATORY DATA: As above. IMAGING: As above. Note that I personally reviewed all the pertinent available images and I agree in general with their overall reported findings with the exception of lack of obvious evidence of acute appendicitis in my opinion. Dictated By: SHELLY HEADLEY/MILLIE Conf#: [id number] DID#: [id number] MTDRichard
[2016-07-07 21:26] VITALS: BP 122/60; RESP 20
[2016-07-08] MEDS: PIPER-TAZO 3.375 GM IV (PMX) 100 ML IVPB SCH (04:51)
[2016-07-08] MEDS: SOD CHLORIDE 0.9% 1,000 ML IV SCH (04:53)
[2016-07-08 05:18] LABS: ADD SCAN DIFF NO
[2016-07-08 05:25] LABS: BASOPHILS % 0.4 % (0.0-2.0); EOSINOPHILS # 0.1 10^3/ul (0.0-0.5); EOSINOPHILS % 2.4 % (0.0-7.0); HEMATOCRIT 42.6 % (42.0-52.0); LYMPHOCYTES # 1.8 10^3/ul (0.8-2.9); LYMPHOCYTES % 36.9 % (15.0-51.0); MEAN CORPUSCULAR HEMOGLOBIN 29.7 pg (29.0-33.0); MEAN CORPUSCULAR HGB CONC 32.9 g/dl (32.0-37.0); MEAN CORPUSCULAR VOLUME 90.3 fl (82.0-101.0); MEAN PLATELET VOLUME 9.6 fl (7.4-10.4); MONOCYTE # 0.6 10^3/ul (0.3-0.9); MONOCYTES % 11.2 % (0.0-11.0); NEUTROPHIL # 2.4 10^3/ul (1.6-7.5); NEUTROPHILS % 48.9 % (39.0-77.0); PLATELET COUNT 316 10^3/UL (140-415); RED BLOOD COUNT 4.72 10^6/ul (4.70-6.10); RED CELL DISTRIBUTION WIDTH 13.2 % (11.5-14.5); WHITE BLOOD COUNT 4.9 10^3/ul (4.8-10.8)
[2016-07-08 05:34] LABS: MAGNESIUM 2.1 mg/dl (1.7-2.5); PHOSPHORUS 4.5 mg/dl (2.5-4.9)
[2016-07-08 05:36] LABS: POTASSIUM 3.7 mmol/L (3.5-5.1)
[2016-07-08 05:39] LABS: CALCIUM 8.4 mg/dl (8.4-10.2); CREATININE 0.89 mg/dl (0.61-1.24)
[2016-07-08 08:46] VITALS: BP 117/62; RESP 18
[2016-07-08] MEDS: FAMOTIDINE 20 MG INJ IV SCH (09:00)
--- NOTE | 2016-07-08 10:16 | PDOCDIS ---
Discharge Instructions DIAGNOSIS Discharge Diagnosis: Abdominal pain. CONDITION Patient Condition: Good FOLLOW UP/APPOINTMENTS Appointments Jacques Herron MD Specialty: Internal Medicine Office Address: [address] [place] [address] Office OTHER ORDERS: Other Orders: 1. Regular diet as tolerated. 2. Resume activities as tolerated. 3. Take [id number] pain medications as needed for any abdominal pain. 4. Follow-up with your PCP in 1 week. If you do not have a primary care physician, please call Dr. Jacques Herron's office. JENNY VIDAL NP Jul 08, 2016 10:16
--- NOTE | 2016-07-08 11:54 | DS ---
DATE OF ADMISSION: 07/06/2016 DATE OF DISCHARGE: 07/08/2016 FINAL DIAGNOSES: Abdominal pain. The CT showing possible early appendicitis. Seen and evaluated by general surgery. No surgical intervention. CONSULTATIONS: Dr. Lucas Wells, general surgery. HOSPITAL COURSE: This is a 20-year-old male with no significant past medical history who initially presented to the ER at [facility] on when he was diagnosed with acute appendicitis. He left the hospital AMA because he was afraid of surgery. The patient did not fill his antibiotics. He came back on 07/06/2006 with abdominal pain along with nausea and vomiting. The patient was afebrile in the emergency room. The patient underwent a CT scan of the abdomen and pelvis in the emergency room that showed acute early appendicitis with minimal periappendiceal stranding in the right lower quadrant. Providing the patient's history of present illness and the diagnostic findings, a clinical decision was made to admit the patient to inpatient setting to have him further evaluated. The patient was admitted to inpatient medical/surgical floor. The patient was kept n.p.o. The patient was started on IV fluids and empiric antibiotics. A general surgery consult was obtained. General surgery saw and evaluated the patient. As per the surgeon, the patient does not have any indication for acute surgical intervention and as the patient could have had resolution of occlusion of his appendix and currently does not meet the criteria for any surgical intervention. Hence, the patient was started on a regular diet. The patient had no significant gastrointestinal symptoms including any pain. The patient had no leukocytosis or febrile illness. The patient was cleared by general surgery to be discharged home. DISCHARGE DISPOSITION/PLAN: The patient will be discharge home. The patient was instructed to continue regular diet as tolerated. The patient instructed to follow up with his primary care physician in 1 week and if he does not have a primary care physician to please call Dr. Jacques Herron's office. The patient verbalized understanding of his discharge instructions. CONDITION AT DISCHARGE: Stable. DISCHARGE MEDICATIONS: None. PERTINENT LABORATORY AND DIAGNOSTIC DATA: 1. CT scan of the abdomen and pelvis: Acute early appendicitis with very minimal periappendiceal stranding in the right lower quadrant. No abnormal fluid collection in the pelvis. 2. Latest CBC: WBC 4.9, hemoglobin 14.0, hematocrit 42.6, platelet count 316. 3. Latest BMP: Sodium 144, potassium 3.7, chloride 106, carbon dioxide 20, anion gap 14, BUN 15, creatinine 0.89, glucose 100, calcium 8.4, phosphorus 4.5 , magnesium 2.1. At this time, we would like to thank Dr. Wells for seeing the patient and providing clinical recommendations. The case and management of this patient was fully discussed with Dr. Apodaca. Approximately 35 minutes was spent on coordinating the discharge on this patient. JENNY APODACA MD AM/NTS Conf#: [id number] DID#: [id number] MTDD
== END 2016-07-08 11:40 | disposition home or self-care (01) | DRG 395 ==
LOC: E/R 11:27 → MS1 20:04
PROVIDERS: ADMIT Family Medicine; ATTEND Family Medicine
DX: K35.80 Unspecified acute appendicitis (principal)
CPT/HCPCS: 36415; 74177; 80048; 80053; 83690; 83735; 84100; 85025; 96365; 96375; J2270; J2405; J2543; J7030; Q9967